=== PATIENT | male | born 2000 | race Caucasian/White ===

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

== ENCOUNTER 2022-01-04 20:35 | Observation (INO) | payer OTHER ==
[2022-01-04] MEDS ORDERED: Ketorolac Tromethamine 30 MG/ML VIAL IVP PRN (23:14)
[2022-01-04] MEDS ORDERED: Morphine 4 MG/ML VIAL SLOW IVP PRN (23:16)
[2022-01-04] MEDS: Morphine 2 MG/ML VIAL SLOW IVP PRN (23:38)
[2022-01-04] MEDS: Piperacillin/Tazobactam 3.375 GM in Sodium Chloride 0.9% 100 ML IVPB SCH (23:39)
[2022-01-04] MEDS: Sodium Chloride 0.9% 1,000 ML IV SCH (23:39)
[2022-01-05 00:19] VITALS: BMI 28.0
[2022-01-05] MEDS: Morphine 2 MG/ML VIAL SLOW IVP PRN (03:04)
[2022-01-05] MEDS ORDERED: Ibuprofen 600 MG TAB PO PRN (08:04)
[2022-01-05] MEDS ORDERED: Acetaminophen 500 MG TAB PO PRN (08:04)
[2022-01-05] MEDS ORDERED: Acetaminophen 500 MG TAB PO SCH (08:15)
[2022-01-05 08:48] VITALS: BP 151/88; TEMP 97.5
[2022-01-05] MEDS: Sodium Chloride 0.9% 1,000 ML IV SCH (10:24)
[2022-01-05] MEDS: Piperacillin/Tazobactam 3.375 GM in Sodium Chloride 0.9% 100 ML IVPB SCH (10:24)
== END 2022-01-05 12:05 | disposition home or self-care (01) ==
LOC: MSONC 22:32
PROVIDERS: ADMIT Specialist; ATTEND Student in an Organized Health Care Education/Training Program
DX: K63.89 Other specified diseases of intestine (principal); F17.290 Nicotine dependence, other tobacco product, uncomplicated; Z20.822 Contact with and (suspected) exposure to COVID-19
CPT/HCPCS: 96374; 96375; 96376; G0378; J2270; J2543; J3490; J7050